=== PATIENT | female | born 1990 | race Hispanic/Latino ===

== ENCOUNTER 2019-08-05 17:26 | Emergency (ER) | payer SELFPAY | END 2019-08-05 19:10 | disposition home or self-care (01) | LOC: EDH 17:26 | DX: F41.1 Generalized anxiety disorder (principal); R20.2 Paresthesia of skin ==

== ENCOUNTER 2019-09-04 08:53 | Emergency (ER) | payer SELFPAY | END 2019-09-04 10:58 | disposition home or self-care (01) | LOC: EDH 08:53 | DX: D64.9 Anemia, unspecified (principal); R53.83 Other fatigue; R53.81 Other malaise; R07.89 Other chest pain; F41.9 Anxiety disorder, unspecified ==

== ENCOUNTER 2019-09-23 13:28 | Emergency (ER) | payer OTHER, SELFPAY ==
[2019-09-23 15:32] LABS: APPEARANCE,URINE Clear (CLEAR); BILIRUBIN,URINE Negative (NEGATIVE); COLOR,URINE Yellow (YELLOW); GLUCOSE, URINE (UA) Negative (NEGATIVE); KETONES,URINE Trace mg/dL (NEGATIVE); LEUKOCYTE ESTERASE ,URINE Negative (NEGATIVE); NITRATE,URINE Negative (NEGATIVE); OCCULT BLOOD,URINE Negative (NEGATIVE); PH,URINE 7.5 (5.0-8.0); PROTEIN,URINE Negative (NEGATIVE)
[2019-09-23] MEDS ORDERED: SODIUM CHLORIDE 0.9% 1000ML 1,000 ML IV ONE (15:44)
[2019-09-23] MEDS ORDERED: ACETAMINOPHEN EXTRA STRENGTH 500 MG TABLET ONE (15:44)
[2019-09-23 15:50] LABS: HCG,QUAL RESULT NEGATIVE (NEGATIVE)
[2019-09-23 16:11] LABS: BASOPHILS % (AUTO) 0.3 % (0.0-5.0); HEMATOCRIT 39.2 % (36-48); MEAN CORPUSCULAR HEMOGLOBIN 25.3 pg (27.0-33.0); MEAN CORPUSCULAR HGB CONC 31.1 g/dL (32.0-36.0); MEAN CORPUSCULAR VOLUME 81.2 fL (79-99); MONOCYTES % (AUTO) 7.3 % (3.0-13.0); NEUTROPHILS % (AUTO) 58.1 % (40.0-77.0); PLATELET COUNT (AUTO) 293 K/uL (130-400); RED BLOOD CELL COUNT(AUTO) 4.83 MIL/uL (4.00-5.50); RED CELL DISTRIBUTION WIDTH 15.9 % (11.0-15.5); WHITE BLOOD COUNT (AUTO) 6.7 K/uL (4.8-10.8)
[2019-09-23 16:16] LABS: BACTERIA,URINE Few /HPF (None Seen); MUCUS,URINE Few LPF (None Seen); SQUAMOUS EPITHELIAL CELL,UR Few /HPF (0-2)
[2019-09-23 16:33] LABS: CREATININE 0.6 mg/dL (0.5-1.5); POTASSIUM 3.8 mmol/L (3.5-5.1)
[2019-09-23 16:39] LABS: ALBUMIN 3.9 g/dL (3.5-5.0); BILIRUBIN,TOTAL 0.2 mg/dL (0.2-1.0); TOTAL PROTEIN, SERUM 8.3 g/dL (6.0-8.3)
== END 2019-09-23 17:16 | disposition home or self-care (01) ==
LOC: EDH 13:28
DX: R51 Headache (principal); Z20.828 Contact with and (suspected) exposure to other viral communicable diseases; F41.9 Anxiety disorder, unspecified
CPT/HCPCS: 36415; 71045; 80053; 81001; 81025; 82550; 84484; 85025; 93005; 99285; J7030

== ENCOUNTER 2019-10-08 20:14 | Emergency (ER) | payer OTHER, SELFPAY ==
[2019-10-08 21:34] LABS: BASOPHILS % (AUTO) 0.3 % (0.0-5.0); EOSINOPHILS % (AUTO) 1.9 % (0.0-8.0); HEMATOCRIT 36.3 % (36-48); LYMPHOCYTES % (AUTO) 28.7 % (21.0-51.0); MEAN CORPUSCULAR HEMOGLOBIN 25.6 pg (27.0-33.0); MEAN CORPUSCULAR HGB CONC 31.7 g/dL (32.0-36.0); MEAN CORPUSCULAR VOLUME 80.8 fL (79-99); MONOCYTES % (AUTO) 5.7 % (3.0-13.0); NEUTROPHILS % (AUTO) 63.1 % (40.0-77.0); PLATELET COUNT (AUTO) 299 K/uL (130-400); RED BLOOD CELL COUNT(AUTO) 4.49 MIL/uL (4.00-5.50); RED CELL DISTRIBUTION WIDTH 16.6 % (11.0-15.5); WHITE BLOOD COUNT (AUTO) 11.6 K/uL (4.8-10.8)
[2019-10-08] MEDS ORDERED: ORPHENADRINE CITRATE 30 MG/ML ML ONE (21:39)
[2019-10-08] MEDS ORDERED: KETOROLAC TROMETHAMINE 30MG/ML ONE (21:39)
[2019-10-08 22:10] LABS: CREATININE 0.7 mg/dL (0.5-1.5); POTASSIUM 3.6 mmol/L (3.5-5.1)
== END 2019-10-08 23:38 | disposition home or self-care (01) ==
LOC: EDH 20:14
DX: U07.1 COVID-19 (principal); M94.0 Chondrocostal junction syndrome [Tietze]; F41.9 Anxiety disorder, unspecified
CPT/HCPCS: 36415; 71045; 80048; 81025; 83690; 85025; 93005; 96374; 99285; J1885; J2360

== ENCOUNTER 2024-08-29 15:07 | Emergency (ER) | payer SELFPAY ==
[~2024-08-29] VITALS: Ht 160 cm; Wt 94.8 kg
[2024-08-29 15:48] LABS: APPEARANCE,URINE CLEAR (CLEAR); BILIRUBIN,URINE NEGATIVE (NEGATIVE); COLOR,URINE LIGHT-YELLOW (YELLOW); GLUCOSE, URINE (UA) NEGATIVE (NEGATIVE); KETONES,URINE NEGATIVE (NEGATIVE); LEUKOCYTE ESTERASE ,URINE 250 Leu/uL (NEGATIVE); NITRATE,URINE NEGATIVE (NEGATIVE); OCCULT BLOOD,URINE MODERATE (NEGATIVE); PH,URINE 6.5 (5.0-8.0); PROTEIN,URINE NEGATIVE (NEGATIVE); UROBILINOGEN,URINE 0.2 mg/dL (0.2-1.0)
[2024-08-29 15:49] LABS: ADD UA MICROSCOPIC YES
[2024-08-29 15:55] LABS: MUCUS,URINE RARE LPF (None Seen); SQUAMOUS EPITHELIAL CELL,UR FEW /HPF (0-2)
--- NOTE | 2024-08-29 16:29 | HMCIMG ---
US OB <14 WEEKS HISTORY: Vaginal bleeding COMPARISON: None TECHNIQUE: Obstetrical ultrasound study was performed. FINDINGS: The uterus measures 13 x 7.4% centimeter. Right ovary measures 2.7 x 1.4 x 2.6 centimeter. Left ovary is not well visualized. There is single intrauterine gestation with estimated gestational age of 10 weeks and 2 days. heart rate is 167 beats per minute. No fluid is seen in the cul-de-sac. There is subchorionic hemorrhage measuring 14 x 18 x 9 mm. IMPRESSION: 1. There is single intrauterine gestation with estimated gestational age of 10 weeks and 2 days. heart rate is 167 beats per minute.
[2024-08-29 16:55] LABS: BASOPHILS # (AUTO) 0.02 K/uL (0.00-0.20); BASOPHILS % (AUTO) 0.2 % (0.0-5.0); EOSINOPHILS # (AUTO) 0.15 K/uL (0.00-0.70); EOSINOPHILS % (AUTO) 1.4 % (0.0-8.0); HEMATOCRIT 34.3 % (36-48); IMMATURE GRANULOCYTE ABSOLUTE 0.03 K/uL (0-1); LYMPHOCYTES # (AUTO) 2.6 K/uL (1.0-4.8); LYMPHOCYTES % (AUTO) 23.5 % (21.0-51.0); MEAN CORPUSCULAR HEMOGLOBIN 29.5 pg (27.0-33.0); MEAN CORPUSCULAR HGB CONC 33.5 g/dL (32.0-36.0); MEAN CORPUSCULAR VOLUME 87.9 fL (79-99); MONOCYTES # (AUTO) 0.6 K/uL (0.1-1.0); MONOCYTES % (AUTO) 5.9 % (3.0-13.0); NEUTROPHILS # (AUTO) 7.5 K/uL (1.8-7.7); NEUTROPHILS % (AUTO) 68.7 % (40.0-77.0); PLATELET COUNT (AUTO) 242 K/uL (130-400); RED CELL DISTRIBUTION WIDTH 13.6 % (11.0-15.5); WHITE BLOOD COUNT (AUTO) 10.9 K/uL (4.8-10.8)
[2024-08-29 17:03] LABS: CREATININE 0.5 mg/dL (0.5-1.0); POTASSIUM 3.9 mmol/L (3.5-5.1)
[2024-08-29] MEDS ORDERED: CEPH500B PO (17:44)
--- NOTE | 2024-08-29 17:44 | ERN ---
ED Note History of Present Illness Stated Complaint: BLEEDING VAGINALLY 9-10 WKS Chief Complaint: Vaginal Bleeding Time Seen by MD: 15:09 Time Seen by Midlevel: 15:10 Dictation: 34-year-old female coming in with complaints of vaginal bleeding that started this morning and lower abdominal cramping. Patient states her LMP is 06/11/2024. Patient states she is about 10 weeks . A0. Does not seen an OBGYN due to insurance problems. Denies any medical or surgical history. Allergies: Coded Allergies: No Known Allergies (Unverified Allergy, Unknown, 09/18/18) No Known Drug Allergies (Unverified Allergy, Unknown, 08/05/19) Past Medical History Past Medical History: No Pertinent History Surgical History: None LMP: Jun 11, 2024 : 4 Para: 3 Aborts: 0 Review of System Dictation Constitutional: Negative for fever,chills, and weight loss Eyes: Negative for injury, pain,redness, and discharge ENT: Negative for injury,pain or swelling Cardiovascular: Negative for chest pain, palpitations, and edema Respiratory: Negative for shortness of breath, cough, and wheezing, Abdomen/GI: Negative for abdominal pain, nausea, vomiting, diarrhea, and constipation Back: Negative for injury and pain : Negative for injury, bleeding and discharge MS/Extremity: Negative for injury and deformity Skin: Negative for rash, and discoloration Neuro: Negative for headache, weakness, numbness, tingling, and seizure Psych: Negative for suicide ideation, homicidal ideation, and hallucinations Review of Systems: was completed Initial Vital Sign VS Vital Signs Date Time Temp Pulse Resp B/P (MAP) Pulse Ox O2 Delivery O2 Flow Rate FiO2 08/29/24 15:14 99.0 84 16 139/73 98 Room Air 0 Physical Exam Dictation General: awake, alert, NAD Head/Face: Normocephalic, atraumatic Eyes: PERRL, EOMI, vision at baseline ENT: oral cavity clear, TMs clear, no signs of infection Neck: Trachea midline, supple, no nuchal rigidity Cardiovascular: RRR, normal S1/S2, No MRGs, no JVD Respiratory: CTAB, no respiratory distress, No rales or wheezes Abdomen: Soft, non-tender, non-distended, normal bowel sounds, no guarding or rebound. Skin: Warm, dry, normal turgor, no rash MS/Extremity: Pulses equal, no cyanosis, neurovascular intact, FROM Neuro: COAx4, GCS 15, strength 5/5, CN 2-12 intact, normal cerebellar exam, normal gait, Psych: Normal behavior, mood, and affect normal Results (Laboratory/Radiology) Laboratory/Radiology Laboratory Tests Test 08/29/24 15:34 08/29/24 16:30 Urine Color LIGHT-YELLOW (YELLOW) Urine Appearance CLEAR (CLEAR) Urine pH 6.5 (5.0-8.0) Urine Specific Webster 1.021 (1.001-1.031) Urine Protein NEGATIVE mg/dL (NEGATIVE) Urine Glucose (UA) NEGATIVE mg/dL (NEGATIVE) Urine Ketones NEGATIVE mg/dL (NEGATIVE) Urine Occult Blood MODERATE (NEGATIVE) H Urine Nitrate NEGATIVE (NEGATIVE) Urine Bilirubin NEGATIVE mg/dL (NEGATIVE) Urine Urobilinogen 0.2 mg/dL (0.2-1.0) Urine Leukocyte Esterase 250 Jim/uL (NEGATIVE) H Urine RBC 11-25 /HPF (0-1) H Urine WBC 6-10 /HPF (0-1) H Urine Squamous Epithelial Cells FEW /HPF (0-2) Urine Bacteria None /HPF (None Seen) White Blood Count 10.9 K/uL (4.8-10.8) H Red Blood Count 3.90 MIL/uL (4.00-5.50) L Hemoglobin 11.5 g/dL (12.0-16.0) L Hematocrit 34.3 % (36-48) L Mean Corpuscular Volume 87.9 fL (79-99) Mean Corpuscular Hemoglobin 29.5 pg (27.0-33.0) Mean Corpuscular Hemoglobin Concent 33.5 g/dL (32.0-36.0) Red Cell Distribution Width 13.6 % (11.0-15.5) Platelet Count 242 K/uL (130-400) Mean Platelet Volume 11.8 fL (7.5-10.5) H Immature Granulocyte % (Auto) 0.3 % (0-1) Neutrophils (%) (Auto) 68.7 % (40.0-77.0) Lymphocytes (%) (Auto) 23.5 % (21.0-51.0) Monocytes (%) (Auto) 5.9 % (3.0-13.0) Eosinophils (%) (Auto) 1.4 % (0.0-8.0) Basophils (%) (Auto) 0.2 % (0.0-5.0) Neutrophils # (Auto) 7.5 K/uL (1.8-7.7) Lymphocytes # (Auto) 2.6 K/uL (1.0-4.8) Monocytes # (Auto) 0.6 K/uL (0.1-1.0) Eosinophils # (Auto) 0.15 K/uL (0.00-0.70) Basophils # (Auto) 0.02 K/uL (0.00-0.20) Absolute Immature Granulocyte (auto 0.03 K/uL (0-1) Nucleated Red Blood Cells 0.0 % (0.0-0.19) Sodium Level 135 mmol/L (136-145) L Potassium Level 3.9 mmol/L (3.5-5.1) Chloride Level 100 mmol/L (101-111) L Carbon Dioxide Level 27 mmol/L (21-32) Blood Urea Nitrogen 9 mg/dL (7-18) Creatinine 0.5 mg/dL (0.5-1.0) Glomerular Filtration Rate Calc 126 mL/min (>90) Random Glucose 93 mg/dL (70-105) Total Calcium 9.4 mg/dL (8.5-10.1) Human Chorionic Gonadotropin, Quant [id number] mIU/mL (0-5) H Labs Reviewed?: Yes Ultrasound Comment: [place] [address] IMAGING REPORT Signed PATIENT: LEEANNE OVALLES MR#: [id number] : 1990 SEX: F AGE: 34 LOCATION: [facility] ORDER 13 STATUS: REG REPORT#: [id number] SERVICE 12 REASON: vaginal bleeding 9 wks preg ORDERING PHYSICIAN: SWATI AMES NP PROCEDURE: OB <14 - US OB <14 WEEKS US OB <14 WEEKS HISTORY: Vaginal bleeding COMPARISON: None TECHNIQUE: Obstetrical ultrasound study was performed. FINDINGS: The uterus measures 13 x 7.4% centimeter. Right ovary measures 2.7 x 1.4 x 2.6 centimeter. Left ovary is not well visualized. There is single intrauterine gestation with estimated gestational age of 10 weeks and 2 days. heart rate is 167 beats per minute. No fluid is seen in the cul-de-sac. There is subchorionic hemorrhage measuring 14 x 18 x 9 mm. IMPRESSION: 1. There is single intrauterine gestation with estimated gestational age of 10 weeks and 2 days. heart rate is 167 beats per minute. DICTATED BY: MARITZA CODY MD DATE: 08/29/241623 ELECTRONICALLY SIGNED BY: MARITZA CODY MD DATE: 08/29/241628 ED Course ED Course Orders Procedure Category Date Status Time Cbc With Differential LAB 08/29/24 Complete 15:13 Basic Metabolic Panel LAB 08/29/24 Complete 15:13 Hcg,Quantitative LAB 08/29/24 Complete 15:13 Urinalysis Profile LAB 08/29/24 Complete 15:13 Us Ob <14 Weeks US 08/29/24 Resulted 15:13 Culture Urine ROYAL 08/29/24 Logged 15:51 Ceftriaxone 1g Vial PHA 08/29/24 Transmitted (Rocephine 1g Inj) 17:39 Vital Signs Date Time Temp Pulse Resp B/P (MAP) Pulse Ox O2 Delivery O2 Flow Rate FiO2 08/29/24 15:14 99.0 84 16 139/73 98 Room Air 0 Medical Decision Making MDM MDM: 34-year-old female coming in with complaints of vaginal bleeding that started this morning and lower abdominal cramping. Patient states her LMP is 06/11/2024. Patient states she is about 10 weeks . A0. Does not seen an OBGYN due to insurance problems. Denies any medical or surgical history. The work unremarkable. UA shows evidence of urinary tract infection. Ultrasound shows a IUP with a two showing of 10 weeks two days and heart rate of 167. In a subchorionic bleed. Findings discussed with the patient. Educated patient she needs to follow up with the OBGYN in 1-2 days, and return to the ER if anything worsens. Patient verbalized understanding, answered all questions. Differential diagnosis: Early , threatened , subchorionic bleed Rationale: Tests considered and ordered secondary to shared decision making include: Previous outside records reviewed: Old ER visits. Risk of complication and/or morbidity or mortality of patient management: None Medications-Per medication reconciliation Need for hospitalization: Patient does not meet criteria for hospitalization. Need for emergency major/minor surgery: No There are no social concerns with this patient. Prescription drug management Prescriptions will include symptomatic care Patient's prior external medical records from other ER visits were reviewed by me as indicated. Prior testing and results from previous visits were reviewed. Prior tests were taken into account with medical decision making and resource utilization, independent historian/historians were used to obtain complete medical history. I independently interpreted the test that were performed, results were reviewed by me and considered findings on radiology if ordered. Medical management and examination interpretation discussions were had by me with other qualified healthcare professionals as indicated for the patient's care. DX & DISP Disposition: Discharge Departure Impression: Primary Impression: Threatened miscarriage Condition: Stable Scripts Cephalexin Monohydrate (Keflex) 500 Mg Cap 500 MG PO QID for 7 Days, #28 CAP Prov: SWATI AMES SENIOR BUSINESS ARCHITECT 08/29/24 Additional Instructions: Please follow up with the OBGYN in 1-2 days. If you have any worsening bleeding then you need to go to the emergency room that has OBGYN on-call. Referrals: SELF,REFERRAL (PCP) Time of Disposition: 17:43 I have reviewed the case, and I agree with, Diagnosis and Plan SWATI AMES NP Aug 29, 2024 17:44
[2024-08-29] MEDS: cefTRIAXone 1G VIAL IM STA (18:02)
[2024-08-29 18:03] VITALS: BP 132/81; PULSE 80; RESP 18; TEMP 98.1; O2SAT 99
== END 2024-08-29 17:55 | disposition home or self-care (01) ==
LOC: EDH 15:07
DX: O20.0 Threatened abortion (principal); Z3A.10 10 weeks gestation of pregnancy
CPT/HCPCS: 99285; 76801; 80048; 84702; 85025; 87086; 81001; 36415; 96372; J0696